=== PATIENT | male | born 1980 | race Two or more races ===

== ENCOUNTER 2024-11-10 15:40 | Emergency (ER) | payer MEDICAID, SELFPAY ==
--- NOTE | ~2024-11-10 | CT_ITS ---
CLINICAL HISTORY: L flank pain CT abdomen and pelvis without contrast Comparison: None available Findings: Mild bibasilar atelectasis/pneumonitis of the lung bases with 1 cm lesion in the lingula (image number 1 of series 8). Motion degraded examination. Splenomegaly with spleen measuring 14 cm long axis. The adrenal glands are normal. Gallbladder, pancreas, and liver are unremarkable for noncontrast study. Phleboliths are redemonstrated in the pelvis including posterior to the bladder and left ureter. Prostate gland measures 5.1 cm transversely and indents upon the urinary bladder with mild wall thickening of the urinary bladder. No obstructing stone in either kidney or either ureter. No hydronephrosis. Small mesenteric lymph nodes are likely reactive. No small bowel obstruction. Severe stool burden is present, including in the cecum. Imaged appendix is within normal limits (image 19 of series 5). Mild vertebral height losses appear old/chronic and accentuated by Schmorl's nodes. Vacuum disc phenomenon at L2-L3. IMPRESSION: 1. Pulmonary opacities concerning for pneumonitis/pneumonia in the lung bases, left worse than right. Recommend attention on follow-up to ensure resolution. 2. Splenomegaly. 3. No obstructing stone in either kidney or either ureter. This document has been electronically signed by: Thanh López MD on 11/10/2024 19:06:18
[2024-11-10 15:43] VITALS: BP 106/54; PULSE 64; RESP 16; TEMP 36.9; O2SAT 98; BMI 24.8
--- NOTE | 2024-11-10 15:44 | ED.GENADULT ---
HPI - General Adult General Chief complaint: General Medical Stated complaint: vomiting and urinating blood hep c hx Time Seen by Provider: 11/10/24 16:17 Related Data Previous Rx's ?Medication ?Instructions ?Recorded acetaminophen 500 mg tablet 500 mg PO Q6H PRN fever or pain 11/10/24 #20 tabs azithromycin 250 mg tablet 250 mg PO DAILY 4 days #4 tabs 11/10/24 (Zithromax) ketorolac 10 mg tablet 10 mg PO Q8H PRN pain #10 tabs 11/10/24 Allergies Allergy/AdvReac Type Severity Reaction Status Date / Time No Known Allergies Allergy Verified 11/10/24 15:44 [facility] Past Medical History Medical History (Updated 11/10/24 @ 20:16 by Lluvia Bustamante MD) Hepatitis C Physical Exam ED Vital Signs: Vital Signs - 24 hr 11/10/24 15:43 11/10/24 20:33 Temperature 98.5 F 98.5 F Pulse Rate 64 64 Respiratory Rate 16 16 Blood Pressure 106/54 L 106/54 L Pulse Oximetry 98 98 Oxygen Delivery Method Room Air Room Air BMI result Body Mass Index 24.8 Course Course Course Narrative: RME performed by Cari Hardy PA-C. Patient is a 44 year old assigned male at presenting to the emergency department with multiple complaints. Patient states that he is coughing, vomiting, and urinating blood. Patient states that he has lost a lot of weight. Patient states that he has hepatitis C and contracted it in 1997 after getting a tattoo in [place]. Detailed physical exam and review of systems are deferred to the acoustical material worker. Labs and swabs ordered. Patient placed back in the waiting room pending room availability and results. Dr. Anderson'lucretia created an additional note for this visit - please refer to that note for the rest of the patient's care / disposition. Medications Administered Discontinued Medications Generic Name Dose Route Start Last Admin Trade Name Freq PRN Reason Stop Dose Admin Azithromycin 500 mg 11/10/24 19:29 11/10/24 19:37 Azithromycin Oral Susp 600 Mg/15 Ml Bottle PO 11/10/24 19:30 Not Given ONCE ONE Azithromycin 500 mg 11/10/24 20:15 11/10/24 20:20 Azithromycin 500 Mg Tablet PO 11/10/24 20:16 500 mg ONCE ONE Administration Sodium Chloride 1,000 mls @ 999 mls/hr 11/10/24 16:23 11/10/24 18:17 Ns IVCONT 11/10/24 17:23 Infused .Q1H1M ONE Infusion Ketorolac Tromethamine 30 mg 11/10/24 16:23 11/10/24 17:18 Ketorolac Tromethamine 30 Mg/Ml Vial IVPUSH 11/10/24 16:24 30 mg ONCE ONE Administration Medical Decision Making Lab Data 11/10/24 16:57 11/10/24 16:57 Labs: Lab Results 11/10/24 11/10/24 11/10/24 Range/Units 16:00 16:57 18:25 WBC 6.6 (4.8-10.8) X10*3/uL RBC 4.60 (4.60-5.80) X10*6/uL Hgb 13.9 L (14.0-18.0) g/dl Hct 40.3 L (42.0-52.0) % MCV 87.6 (80.0-98.0) fL MCH 30.2 (27.0-33.0) pg MCHC 34.5 (31.0-36.0) g/dl RDW 13.2 (11.0-16.0) % Plt Count TNP MPV 11.5 (9.4-12.4) fL Immature Gran % (Auto) 0.3 (0.0-0.4) % Neut % (Auto) 70.4 (45-73) % Lymph % (Auto) 19.1 L (20-40) % Harrison % (Auto) 9.7 (2-11) % Eos % (Auto) 0.3 (0-4) % Baso % (Auto) 0.2 (0-2) % Lymph # (Auto) 1.3 (1.2-4.9) X10*3/uL Harrison # (Auto) 0.6 (0.1-1.2) X10*3/uL Eos # (Auto) 0.0 (0.0-0.4) X10*3/uL Baso # (Auto) 0.0 (0.0-0.2) X10*3/uL Abs Immat Gran (auto) 0.02 (0.00-0.03) X10*3/uL Absolute Neuts (auto) 4.7 (2.0-8.3) x10*3/uL Absolute Nucleated RBC 0.000 (0.0-0.012) X10*3/uL Nucleated RBC % (auto) 0.0 (0.0-0.2) /100WBC Smear Tech's Comments VERIFIED PT 14.2 H (10.9-12.4) SEC INR 1.2 H (0.9-1.1) APTT 28.7 (26.0-36.8) SEC Sodium 138 (135-145) mmol/L Potassium 4.6 (3.3-5.1) mmol/L Chloride 109 H (96-108) mmol/L Carbon Dioxide 20 L (22-29) mmol/L Anion Gap 14 (12-20) BUN 11 (9-16) mg/dL Creatinine 0.74 (0.5-1.4) mg/dL Estim Creat Clear Calc 121.9 Estimated GFR > 60 Random Glucose 127 H (60-115) mg/dL Calcium 9.0 (8.4-10.2) mg/dL Magnesium 1.9 (1.6-2.6) mg/dL Total Bilirubin 0.7 (0.0-1.0) mg/dL AST 44 H (5-37) U/L ALT 41 H (0-40) U/L Alkaline Phosphatase 60 (39-117) U/L Total Protein 7.8 (6.5-8.0) g/dL Albumin 3.7 (3.5-5.0) g/dL Urine Color Urine Appearance Urine pH (5.0-9.0) Ur Specific [place] (1.005-1.025) Urine Protein (Neg-Trace) mg/dL Urine Glucose (UA) (Negative) mg/dL Urine Ketones (Negative) mg/dL Urine Blood (Negative) Urine Nitrite (Negative) Ur Leukocyte Esterase (Negative) Urine RBC (0-2) /HPF Urine WBC (0-5) /HPF Ur Squamous Epith Cells (0-2) /HPF Urine Bacteria (None Seen) Hyaline Casts (0-2) /LPF Influenza Type A (PCR) NEGATIVE (Negative) Influenza Type B (PCR) POSITIVE A (Negative) RSV RNA Qual (PCR) NEGATIVE (Negative) SARS-CoV-2 RNA (RT-PCR) NEGATIVE (Negative) 11/10/24 Range/Units 19:39 WBC (4.8-10.8) X10*3/uL RBC (4.60-5.80) X10*6/uL Hgb (14.0-18.0) g/dl Hct (42.0-52.0) % MCV (80.0-98.0) fL MCH (27.0-33.0) pg MCHC (31.0-36.0) g/dl RDW (11.0-16.0) % Plt Count MPV (9.4-12.4) fL Immature Gran % (Auto) (0.0-0.4) % Neut % (Auto) (45-73) % Lymph % (Auto) (20-40) % Harrison % (Auto) (2-11) % Eos % (Auto) (0-4) % Baso % (Auto) (0-2) % Lymph # (Auto) (1.2-4.9) X10*3/uL Harrison # (Auto) (0.1-1.2) X10*3/uL Eos # (Auto) (0.0-0.4) X10*3/uL Baso # (Auto) (0.0-0.2) X10*3/uL Abs Immat Gran (auto) (0.00-0.03) X10*3/uL Absolute Neuts (auto) (2.0-8.3) x10*3/uL Absolute Nucleated RBC (0.0-0.012) X10*3/uL Nucleated RBC % (auto) (0.0-0.2) /100WBC Smear Tech's Comments PT (10.9-12.4) SEC INR (0.9-1.1) APTT (26.0-36.8) SEC Sodium (135-145) mmol/L Potassium (3.3-5.1) mmol/L Chloride (96-108) mmol/L Carbon Dioxide (22-29) mmol/L Anion Gap (12-20) BUN (9-16) mg/dL Creatinine (0.5-1.4) mg/dL Estim Creat Clear Calc Estimated GFR Random Glucose (60-115) mg/dL Calcium (8.4-10.2) mg/dL Magnesium (1.6-2.6) mg/dL Total Bilirubin (0.0-1.0) mg/dL AST (5-37) U/L ALT (0-40) U/L Alkaline Phosphatase (39-117) U/L Total Protein (6.5-8.0) g/dL Albumin (3.5-5.0) g/dL Urine Color Dark Yellow Urine Appearance Clear Urine pH 5.5 (5.0-9.0) Ur Specific [place] >= 1.030 H (1.005-1.025) Urine Protein 30 (1+) H (Neg-Trace) mg/dL Urine Glucose (UA) Negative (Negative) mg/dL Urine Ketones 15 (Negative) mg/dL Urine Blood Negative (Negative) Urine Nitrite Negative (Negative) Ur Leukocyte Esterase Negative (Negative) Urine RBC 0-2 (0-2) /HPF Urine WBC 0-5 (0-5) /HPF Ur Squamous Epith Cells 0-2 (0-2) /HPF Urine Bacteria None Seen (None Seen) Hyaline Casts 3-5 (0-2) /LPF Influenza Type A (PCR) (Negative) Influenza Type B (PCR) (Negative) RSV RNA Qual (PCR) (Negative) SARS-CoV-2 RNA (RT-PCR) (Negative) Discharge Plan Discharge Clinical Impression: Influenza, Pneumonia, Acute flank pain Patient Disposition: Home, Self-Care Instructions: Influenza (ED), Flank Pain (ED), Pneumonia (ED) Additional Instructions: Please follow-up with your primary care physician tomorrow. If you have any worsening or new symptoms, please return to the emergency room or call 911 Prescriptions: New azithromycin [Zithromax] 250 mg tablet 250 mg PO DAILY 4 Days Qty: 4 0RF Rx Instructions: start on day 2 of therapy ketorolac 10 mg tablet 10 mg PO Q8H PRN (Reason: pain) Qty: 10 0RF Rx Instructions: maximum total duration of 5 days from all oral, intranasal, or parenteral formulations acetaminophen 500 mg tablet 500 mg PO Q6H PRN (Reason: fever or pain) Qty: 20 0RF Stand Alone Forms: Work/School Release Interventions: ED Discharge Assessment Last Done: 11/10/24 20:33 Discharge Date/Time: 11/10/24 20:34 Print Language: Portuguese
--- OUTSIDE RECORDS SUMMARY | 2024-11-10 16:08 | XMS_ITS | Encounter Summary ---
Author Organization [facility] [place] [address] Care Team Providers Care Piping Drafter Name Role Phone Physician, Pcp Unknown Primary Care Provider Arpita vailable Reason for Visit * Reason Comments URI Abdominal Pain 0 Encounter Details Date Type Department Care Team (Late st Contact Info) Description 11/09/2024 3:53 PM EST - 11/09/2024 10:51 PM EST Emergency [facility] Emergency [address] [place] [address] Discharge Disposition: Home or Self Care Social History Tobacco Use Types Packs/Day Years Used Date Smoking Tobacco: Every Day Cigarettes Smokeless Tobacco: Never Tobacco Cessation:Ready to Q uit: No; Counseling Given: Not Answered Sex and Gender Information Value Date Recorded Sex Assigned at Not on file Gender Identity Not on file Sexual Orientation Not on file Job Start Date Occupation Industry Not on file Not on file Not on file documented as of this encounter Last Filed Vital Signs Vital Sign Reading Time Taken Comments Blood Pressure 109/70 11/09/2024 4:17 PM EST Pulse 76 11/09/2024 4:17 PM EST Temperature 37.3 ??C (99.1 ??F) 11/09/2024 4:17 PM ES T Respiratory Rate 18 11/09/2024 4:17 PM EST Oxygen Saturation 96% 11/09/2024 4:17 PM EST Inhaled Oxygen Concentration - - Weight 76.2 kg (168 lb) 11/09/2024 4:17 PM EST Height 172.7 cm (5' 8 ) 11/09/2024 4:17 PM EST Body Mass Index 25.54 11/09/2024 4:17 PM EST documented in this encounter Discharge Disposition Disposition Code Departure Means Destination Home or Self Care documented in this encounter Progress Notes * Karissa Green RN - 11/09/2024 4:23 PM EST Abdominal pain 3 days . Nausea no vomiting no diarrhea and headache . Pt also co burning on urination. Pain is sharp constant . Normal bms . Hx hepititis documented in this encounter Plan of Treatment Not on file documented as of this encounter Procedures Procedure Name Priority Date/Time Associated Diagnosis Comments URINALYSIS WITH REFLEX MICROSCOPIC AND CULTURE STAT 11/09/2024 4:17 PM EST WRAY URINE CULTURE TUBE STAT 11/09/2024 4:17 PM EST URINALYSIS WITH REFLEX MICROSCOPIC AND CULTURE STAT 11/09/2024 4:17 PM EST documented in this encounter Results * Wray urine culture tube (11/09/2024 4:17 PM EST) Extra Tube Hold for add-ons. 11/09/2024 7:01 PM EST [facility] Comment:Auto resulted. Urine Urine specimen obtained by clean catch procedure / Unknown 11/09/2024 4:17 PM EST 11/09/2024 6:00 PM EST Terry Zhang MD LAB URINE ORDERABLE S [facility] [address] [place] [address], * (ABNORMAL) Urinalysis with reflex microscopic and culture (11/09/2024 4:17 PM EST) Specific [place] Urine 1.027 1.003 - 1.030 LAB URINALYSIS - AUTOMATED METHOD 11/09/2024 6:13 PM [facility] pH, Urine 5.5 5.0 - 8.0 pH LAB URINALYSIS - AUTOMATED METHOD 11/09/2024 6:13 PM [facility] Leukocytes, Urine Negative Negative LAB URINALYSIS - AUTOMATED METHOD 11/09/2024 6:13 PM [facility] Nitrite, Urine Negative Negative LAB URINALYSIS - AUTOMATED METHOD 11/09/2024 6:13 PM [facility] Protein, Urine Trace <=Trace mg/dL LAB URINALYSIS - AUTOMATED METHOD 11/09/2024 6:13 PM [facility] Glucose, Urine Negative Negative mg/dL LAB URINALYSIS - AUTOMATED METHOD 11/09/2024 6:13 PM [facility] Ketones, Urine 15(A) Negative mg/dL LAB URINALYSIS - AUTOMATED METHOD 11/09/2024 6:13 PM [facility] Urobilinogen, Urine 2.0(A) 0.2 - 1.0 mg/dL LAB URINALYSIS - AUTOMATED METHOD 11/09/2024 6:13 PM [facility] Bilirubin, Urine Negative Negative LAB URINALYSIS - AUTOMATED METHOD 11/09/2024 6:13 PM [facility] Blood, Urine Negative Negative LAB URINALYSIS - AUTOMATED METHOD 11/09/2024 6:13 PM [facility] Urine Urine specimen obtained by clean catch procedure / Unknown 11/09/2024 4:17 PM EST 11/09/2024 6:00 PM EST Terry Zhang MD LAB URINE ORDERABLE S [facility] [address] [place] [address], documented in this encounter Visit Diagnoses Not on filedocumented in this encounter Administered Medications Inactive Administered Medications - up to 3 most recent administrations Medication Order MAR Action Action Date Dose Rate Site acetaminophen (TYLENOL) tablet 1,000 mg 1,000 mg, oral, Once, On Tue11/09/24 at 2025, For 1 dose, PRN for Pain or Fever Given 11/09/2024 8:30 PM EST 1,000 mg documented in this encounter Active and Recently Administered Medications Times are shown in EST. Scheduled Medication Order 11/07/2024 11/08/2024 11/09/2024 acetaminophen (TYLENOL) tablet 1,000 mg (COMPLETED) 1,000 mg, oral, Once, On Tue11/09/24 at 2025, For 1 dose, PRN for Pain or Fever 2029 (Given - Provid er: Gilberto Navarro RN) documented in this encounter Orders Medications Ordered That Shyam ht Not Have Been Administered Count Last Ordered Date First Ordered Date acetaminophen (TYLENOL) tablet 1,000 mg 1 0 11/09/2024 documented in this encounter Care Teams Piping Drafter Relationship Specialty Start Date End Date Physician, Pcp Unknown PCP - General 11/09/24 documented as of this encounter
--- OUTSIDE RECORDS SUMMARY | 2024-11-10 16:08 | XMS_ITS | Clinical Summary ---
Author Organization [facility] Address [address] [place] [address] Care Team Providers Care Pick Pulling Machine Tender Name Role Phone Audra Schneider Primary Care Provider [phone] Source Comments PLEASE NOTE, if this patient is a minor, it may be UNLAWFUL to discuss sensitive information that is contained in these records (such as FAMILY PLANNING, MENTAL HEALTH or SUBSTANCE ABUSE) with the minor patient's parent or other person without the patient's specific authorization.[facility] Allergies No known active allergies Medications SUBOXONE 8-2 mg SL film DISSOLVE 2 FILMS UNDER THE TONGUE DAILY 02/28/2024 Active Active Problems Problem Noted Date Diagnosed Date History of incarceration 03/06/2024 Immunizations Name Administration Dates Next Due Hep B,adult,adjuvanted (HEPLISAV) 07/04/2024 PNEUMOCOCCAL CONJUGATE PCV 20 (Prevnar) 07/04/20 24 TDAP 07/04/2024 Family History Medical History Relation Name Comments Heart attack Father Relation Name Status Comments Father Mother Alive Social History Tobacco Use Types Packs/Day Years Used Date Smoking Tobacco: Every Day Cigarettes 0.6 6.7 Started: 03/06/2023 Smokeless Tobacco: Never Tobacco Cessation:Ready to Q uit: No; Counseling Given: No Alcohol Use Standard Drinks/Week Comments Yes 0 (1 standard drink = 0.6 oz pur e alcohol) sometimes Social Connections Answer Date Recorded Connectedness 1 07/04/2024 Financial Resource Strain Answer Date R ecorded Financial Resource Strain 1 2023 Stress Answer Date Recorded Stress 1 07/04/2024 Physical Activity Answer Date Recorded Physical Activity 0 12/28/2023 Food Insecurity Answer Date Recorded Food 1 07/04/2024 Transportation Needs Answer Date Record ed Transportation 1 07/04/2024 Housing Stability Answer Date Recorded Housing 1 07/04/2024 Safety and Environment Answer Date Raheem rded Safety 0 12/28/2023 Utilities Answer Date Recorded Utilities 1 07/04/2024 Employment Answer Date Recorded Stress 0 06/17/2024 Sex and Gender Information Value Date Recorded Sex Assigned at Male 03/06/2024 8:10 AM PDT Legal Sex Male 7:05 AM PST Gender Identity Male 03/06/2024 8:10 AM PDT Sexual Orientation Straight 03/06/2024 8: 10 AM PDT Last Filed Vital Signs Vital Sign Reading Time Taken Comments Blood Pressure 110/66 07/04/2024 1:14 PM EDT Pulse 67 07/04/2024 1:14 PM EDT Temperature 36.4 ??C (97.6 ??F) 03/06/2024 11:08 AM E DT Respiratory Rate 18 07/04/2024 1:14 PM EDT Oxygen Saturation 97% 07/04/2024 1:14 PM EDT Inhaled Oxygen Concentration - - Weight 77.6 kg (171 lb) 07/04/2024 1:14 PM EDT Height 172.7 cm (5' 8 ) 07/04/2024 1:14 PM EDT Body Mass Index 26 07/04/2024 1:14 PM EDT Plan of Treatment Health Maintenance Due Date Last Done Comments CT Colonography 2024 Colonoscopy 2024 Colorectal Cancer Screening 2024 FIT/gFOBT 2024 Fecal DNA 2024 Flexible Sigmoidoscopy 2024 Imm-Hepatitis B (2 of 2 - Cp G 2-dose series) 08/01/2024 07/04/2024 Alcohol and Drug Screen 10/03/2024 07/04/20 24, 03/06/2024 Depression Monitoring 10/04/2024 07/04/2024 , 03/06/2024 [id number] ( season) 2025 Postponed from 06/03 (Patient postponement) Tobacco Cessation Counseling (#1) 03/06/2025 Imm-Influenza (#1) 2025 Postponed from 06/03/2024 (Patient postponement) Annual Preventive Care Visit 07/04/2025 07/04/2024 Hypertension Screening (#1) 07/04/2025 Diabetes Screening 03/15/2027 03/15/2024 Lipid Screening 03/15/2029 03/15/2024 Imm-DTaP/Tdap/Td (2 - Td or Tdap) 07/04/2034 07/04/2024 HIV Screening Completed 03/15/2024 Imm-Pneumococcal Completed 07/04/2024 Procedures Procedure Name Priority Date/Time Associated Diagnosis Comments HIV 1/2 AG & AB W/RFLX (4TH GEN) Routine 03/15/2024 9:57 AM EDT Screening due COMPREHENSIVE METABOLIC PANEL Routine 03/15/2024 9:57 AM EDT Dyspnea, unspecified type LIPID PANEL Routine 03/15/2024 9:57 AM EDT Dyspnea, unspecified type from Last 3 Months or Most Recently Relevant to Health Maintenance Results * HIV 1/2 AG & AB W/RFLX (4TH GEN) (03/15/2024 9:57 AM EDT) HIV AG/AB, 4TH GEN NON-REAC TIVE NON-REAC TIVE [facility] Comment: HIV-1 antigen and HIV-1/HIV-2 antibodies were not detected. There is no laboratory evidence of HIV infection. PLEASE NOTE: This information has been disclosed to you from records whose confidentiality may be protected by state law. ??If your state requires such protection, then the state law prohibits you from making any further disclosure of the information without the specific written consent of the person to whom it pertains, or as otherwise permitted by law. A general authorization for the release of medical or other information is NOT sufficient for this purpose. ?? For additional information please refer to http://education.Queue-it/faq/JUW069 (This link is being provided for informational/ educational purposes only.) The performance of this assay has not been clinically validated in patients less than 2 years old. Blood Blood / Unknown 03/15/2024 9 :57 AM EDT 03/15/2024 9:58 AM EDT Narrative [facility] - 03/17/2024 1:26 PM EDT FASTING:NO Audra [facility] - BLOOD DRAW Final Result Performing Organization Address City/[facility]/ZIP Co de Phone Number [facility] [address] [address], [facility] [address] [address] * LIPID PANEL (03/15/2024 9:57 AM EDT) [facility] Signature CHOLESTEROL, TOTAL 120 <200 mg/dL [facility] HDL CHOLESTEROL 44 > OR = 40 mg/dL [facility] TRIGLYCERIDES 49 <150 mg/dL [facility] LDL-CHOLESTEROL 62 99 mg/dL (calc) [facility] Comment: Reference range: <100 Desirable range <100 mg/dL for primary prevention; ?? <70 mg/dL for patients with CHD or diabetic patients with > or = 2 CHD risk factors. LDL-C is now calculated using the Vin-Roland calculation, which is a validated novel method providing better accuracy than the Friedewald equation in the estimation of LDL-C. Vin RALPH et al. EMELIA. 2013;310(19): 7315-1471 (http://education.[employer]/faq/DED068) CHOL/HDLC RATIO 2.7 <5.0 (calc) [facility] NON-HDL CHOLESTEROL 76 <130 mg/dL (calc) [facility] Comment: For patients with diabetes plus 1 major ASCVD risk factor, treating to a non-HDL-C goal of <100 mg/dL (LDL-C of <70 mg/dL) is considered a therapeutic option. Blood Blood / Unknown 03/15/2024 9 :57 AM EDT 03/15/2024 9:58 AM EDT Narrative [facility] - 03/17/2024 1:26 PM EDT FASTING:NO Audar [facility] - BLOOD DRAW Final Result Performing Organization Address [facility]/ZIP Co de Phone Number [facility] [address] [address], [facility] [address] [place] [address] * (ABNORMAL) COMPREHENSIVE METABOLIC PANEL (03/15/2024 9:57 AM EDT) GLUCOSE 79 65 - 139 mg/dL [facility] Comment: ?Non-fasting reference interval UREA NITROGEN (BUN) 12 7 - 25 mg/dL [facility] CREATININE (blood) 0.90 0.60 - 1.29 mg/dL [facility] EGFR 108 > OR = 60 mL/min/1. 73m2 [facility] BUN/CREATININE RATIO SEE NOTE: [facility] Comment: ?? Not Reported: BUN and Creatinine are within ?? reference range. ? SODIUM 139 135 - 146 mmol/L [facility] POTASSIUM 4.1 3.5 - 5.3 mmol/L [facility] CHLORIDE 106 98 - 110 mmol/L [facility] CARBON DIOXIDE 25 20 - 32 mmol/L [facility] CALCIUM 9.2 8.6 - 10.3 mg/dL [facility] PROTEIN, TOTAL 7.1 6.1 - 8.1 g/dL [facility] ALBUMIN 4.2 3.6 - 5.1 g/dL [facility] GLOBULIN 2.9 1.9 - 3.7 g/dL (calc) [facility] ALBUMIN/GLOBULI N RATIO 1.4 1.0 - 2.5 (calc) [facility] BILIRUBIN, TOTAL 0.7 0.2 - 1.2 mg/dL [facility] ALKALINE PHOSPHATASE 70 36 - 130 U/L [facility] AST 47(H) 10 - 40 U/L [facility] ALT 69(H) 9 - 46 U/L [facility] Blood Blood / Unknown 03/15/2024 9 :57 AM EDT 03/15/2024 9:58 AM EDT Narrative [facility] - 03/17/2024 1:26 PM EDT FASTING:NO Audra [facility] - BLOOD DRAW Edited Result - Final [facility] [address] [address], [facility] [address] [place] [address] from Last 3 Months or Most Recently Relevant to Health Maintenance Insurance [id number] [facility] [employer] Care Teams Pick Pulling Machine Tender Relationship Specialty Start Date End Date Audra Schneider PA [address] [place] [address] PCP - General Primary Care 12/28/23
--- NOTE | 2024-11-10 16:26 | ED.GENADULT ---
HPI - General Adult General Chief complaint: General Medical Stated complaint: vomiting and urinating blood hep c hx Time Seen by Provider: 11/10/24 16:17 Source: patient Mode of arrival: ambulatory Limitations: no limitations History of Present Illness ED Provider: Dr. Lluvia Bustamante HPI narrative: Patient comes to the emergency room complaining of 2 days of left-sided flank pain, hematuria and dysuria. Patient states that he was recently diagnosed with the flu and has current headaches. Patient complaining of diffuse body aches, generalized malaise. Patient also states that he has history of hepatitis-C, and eventually would like to have it treated. Related Data Previous Rx's ?Medication ?Instructions ?Recorded acetaminophen 500 mg tablet 500 mg PO Q6H PRN fever or pain 11/10/24 #20 tabs azithromycin 250 mg tablet 250 mg PO DAILY 4 days #4 tabs 11/10/24 (Zithromax) ketorolac 10 mg tablet 10 mg PO Q8H PRN pain #10 tabs 11/10/24 Allergies Allergy/AdvReac Type Severity Reaction Status Date / Time No Known Allergies Allergy Verified 11/10/24 15:44 Review of Systems Review of Systems: Constitutional : No Weight loss, No Fever, No Chills, No Night Sweats, No Fatigue, No Malaise ENT/Mouth : No Hearing loss, No Ear Pain, No Nasal Congestion, No Sinus Pain, No Hoarseness, No sore throat, No Rhinorrhea, No Swallowing Difficulty Eyes: No Eye Pain, No Swelling, No Redness, No Foreign Body, No Discharge, No Vision Changes Cardiovascular : No Chest Pain, No SOB, No Dyspnea on Exertion, No Orthopnea, No Edema, No Palpitations Respiratory : No Cough, No Sputum, No Wheezing, No Smoke Exposure, No Dyspnea Gastrointestinal : Complaining of nausea and vomiting No Diarrhea, No Constipation, No abdominal Pain, No Hematochezia, No Melena Genitourinary : complaining of hematuria and dysuria,, No Urinary Incontinence, No Urgency, complaining of left-sidedFlank Pain, No Urinary Flow Changes, No Hesitancy Musculoskeletal : No joint pain, No Myalgias, No Joint Swelling Skin : No Skin Lesions, No rash Neuro : No Weakness, No Numbness, No Paresthesias, No Loss of Consciousness, No Dizziness, No Headache Psych : No Anxiety/Panic, No Depression, No SI/HI/AH/VH, No Social Issues, Heme/Lymph: No Bruising, No Bleeding,No Lymphadenopathy Endocrine : No Polyuria, No Polydipsia, No Temperature Intolerance COUNTS INCLUDE 234 BEDS AT THE [facility] Past Medical History Medical History (Updated 11/10/24 @ 20:16 by Lluvia Bustamante MD) Hepatitis C Social History Social History Advance Directives: No Advance Directives Information Provided: No Physical Exam ED Vital Signs: Vital Signs - 24 hr 11/10/24 15:43 Temperature 98.5 F Pulse Rate 64 Respiratory Rate 16 Blood Pressure 106/54 L Pulse Oximetry 98 Oxygen Delivery Method Room Air BMI result Body Mass Index 24.8 Const Other: Appearance: Alert. Oriented X3. seems a bit uncomfortable Eyes: Pupils equal, round and reactive to light. ENT: Pharynx normal. Neck: Normal inspection. Neck supple. No lymph nodes noted. No crepitus CVS: Normal heart rate and rhythm. Pulses normal. Normal S1 and S2 Respiratory: No respiratory distress. Breath sounds normal. No Wheezing. No rales Abdomen: Soft and nontender. No rigidity. No distention. CVA tenderness on the left Skin: Skin warm and dry. Normal skin color. Normal skin turgor. Extremities: No lower extremity edema. No Lacerations. No Rash Neuro: Oriented X 3. No motor deficit. No sensory deficit. Moving all extremities. No slurred speech. CN 2 through 12 grossly intact Psych: calm, cooperative, normal affect Course Course Course Narrative: patient receiving IV fluids, ketorolac all of patient's labs and imaging pending Consultations Additional Consultation(s): Medications Administered Discontinued Medications Generic Name Dose Route Start Last Admin Trade Name Tyrel PRN Reason Stop Dose Admin Azithromycin 500 mg 11/10/24 19:29 11/10/24 19:37 Azithromycin Oral Susp 600 Mg/15 Ml Bottle PO 11/10/24 19:30 Not Given ONCE ONE Sodium Chloride 1,000 mls @ 999 mls/hr 11/10/24 16:23 11/10/24 18:17 Ns IVCONT 11/10/24 17:23 Infused .Q1H1M ONE Infusion Ketorolac Tromethamine 30 mg 11/10/24 16:23 11/10/24 17:18 Ketorolac Tromethamine 30 Mg/Ml Vial IVPUSH 11/10/24 16:24 30 mg ONCE ONE Administration Medical Decision Making Medical Decision Making [facility] Narrative: my interpretation of labs: Patient's hematology does not show any acute abnormality. , no significant abnormality in patient's chemistry, LFTs slightly bumped, chronic per patient. Urinalysis negative for UTI, serology positive for influenza B CT scan of the abdomen pelvis does not show any acute abnormality, no kidney stones. Patient has pulmonary opacities concerning for pneumonitis versus pneumonia. Patient has been coughing, unwell, recently diagnosed with flu. Given patient's symptoms and radiologic findings, we will go ahead and treat with antibiotics. First dose of azithromycin given in the emergency room. Patient states that he has an appointment pending in the clinic to start treatment for hepatitis-C. patient has a fever, no oxygen desaturations Differential Diagnosis Differential Diagnoses: The differential diagnosis associated with the presentation includes ( As above) Lab Data [facility] Lab Attestation statement: I reviewed the patient's lab results. 11/10/24 16:57 11/10/24 16:57 Labs: Lab Results 11/10/24 11/10/24 11/10/24 Range/Units 16:00 16:57 18:25 WBC 6.6 (4.8-10.8) X10*3/uL RBC 4.60 (4.60-5.80) X10*6/uL Hgb 13.9 L (14.0-18.0) g/dl Hct 40.3 L (42.0-52.0) % MCV 87.6 (80.0-98.0) fL MCH 30.2 (27.0-33.0) pg MCHC 34.5 (31.0-36.0) g/dl RDW 13.2 (11.0-16.0) % Plt Count TNP MPV 11.5 (9.4-12.4) fL Immature Gran % (Auto) 0.3 (0.0-0.4) % Neut % (Auto) 70.4 (45-73) % Lymph % (Auto) 19.1 L (20-40) % [place] % (Auto) 9.7 (2-11) % Eos % (Auto) 0.3 (0-4) % Baso % (Auto) 0.2 (0-2) % Lymph # (Auto) 1.3 (1.2-4.9) X10*3/uL [place] # (Auto) 0.6 (0.1-1.2) X10*3/uL Eos # (Auto) 0.0 (0.0-0.4) X10*3/uL Baso # (Auto) 0.0 (0.0-0.2) X10*3/uL Abs Immat Gran (auto) 0.02 (0.00-0.03) X10*3/uL Absolute Neuts (auto) 4.7 (2.0-8.3) x10*3/uL Absolute Nucleated RBC 0.000 (0.0-0.012) X10*3/uL Nucleated RBC % (auto) 0.0 (0.0-0.2) /100WBC Smear Tech's Comments VERIFIED PT 14.2 H (10.9-12.4) SEC INR 1.2 H (0.9-1.1) APTT 28.7 (26.0-36.8) SEC Sodium 138 (135-145) mmol/L Potassium 4.6 (3.3-5.1) mmol/L Chloride 109 H (96-108) mmol/L Carbon Dioxide 20 L (22-29) mmol/L Anion Gap 14 (12-20) BUN 11 (9-16) mg/dL Creatinine 0.74 (0.5-1.4) mg/dL Estim Creat Clear Calc 121.9 Estimated GFR > 60 Random Glucose 127 H (60-115) mg/dL Calcium 9.0 (8.4-10.2) mg/dL Magnesium 1.9 (1.6-2.6) mg/dL Total Bilirubin 0.7 (0.0-1.0) mg/dL AST 44 H (5-37) U/L ALT 41 H (0-40) U/L Alkaline Phosphatase 60 (39-117) U/L Total Protein 7.8 (6.5-8.0) g/dL Albumin 3.7 (3.5-5.0) g/dL Urine Color Urine Appearance Urine pH (5.0-9.0) Ur Specific [place] (1.005-1.025) Urine Protein (Neg-Trace) mg/dL Urine Glucose (UA) (Negative) mg/dL Urine Ketones (Negative) mg/dL Urine Blood (Negative) Urine Nitrite (Negative) Ur Leukocyte Esterase (Negative) Urine RBC (0-2) /HPF Urine WBC (0-5) /HPF Ur Squamous Epith Cells (0-2) /HPF Urine Bacteria (None Seen) Hyaline Casts (0-2) /LPF Influenza Type A (PCR) NEGATIVE (Negative) Influenza Type B (PCR) POSITIVE A (Negative) RSV RNA Qual (PCR) NEGATIVE (Negative) SARS-CoV-2 RNA (RT-PCR) NEGATIVE (Negative) 11/10/24 Range/Units 19:39 WBC (4.8-10.8) X10*3/uL RBC (4.60-5.80) X10*6/uL Hgb (14.0-18.0) g/dl Hct (42.0-52.0) % MCV (80.0-98.0) fL MCH (27.0-33.0) pg MCHC (31.0-36.0) g/dl RDW (11.0-16.0) % Plt Count MPV (9.4-12.4) fL Immature Gran % (Auto) (0.0-0.4) % Neut % (Auto) (45-73) % Lymph % (Auto) (20-40) % [place] % (Auto) (2-11) % Eos % (Auto) (0-4) % Baso % (Auto) (0-2) % Lymph # (Auto) (1.2-4.9) X10*3/uL [place] # (Auto) (0.1-1.2) X10*3/uL Eos # (Auto) (0.0-0.4) X10*3/uL Baso # (Auto) (0.0-0.2) X10*3/uL Abs Immat Gran (auto) (0.00-0.03) X10*3/uL Absolute Neuts (auto) (2.0-8.3) x10*3/uL Absolute Nucleated RBC (0.0-0.012) X10*3/uL Nucleated RBC % (auto) (0.0-0.2) /100WBC Smear Tech's Comments PT (10.9-12.4) SEC INR (0.9-1.1) APTT (26.0-36.8) SEC Sodium (135-145) mmol/L Potassium (3.3-5.1) mmol/L Chloride (96-108) mmol/L Carbon Dioxide (22-29) mmol/L Anion Gap (12-20) BUN (9-16) mg/dL Creatinine (0.5-1.4) mg/dL Estim Creat Clear Calc Estimated GFR Random Glucose (60-115) mg/dL Calcium (8.4-10.2) mg/dL Magnesium (1.6-2.6) mg/dL Total Bilirubin (0.0-1.0) mg/dL AST (5-37) U/L ALT (0-40) U/L Alkaline Phosphatase (39-117) U/L Total Protein (6.5-8.0) g/dL Albumin (3.5-5.0) g/dL Urine Color Dark Yellow Urine Appearance Clear Urine pH 5.5 (5.0-9.0) Ur Specific [place] >= 1.030 H (1.005-1.025) Urine Protein 30 (1+) H (Neg-Trace) mg/dL Urine Glucose (UA) Negative (Negative) mg/dL Urine Ketones 15 (Negative) mg/dL Urine Blood Negative (Negative) Urine Nitrite Negative (Negative) Ur Leukocyte Esterase Negative (Negative) Urine RBC 0-2 (0-2) /HPF Urine WBC 0-5 (0-5) /HPF Ur Squamous Epith Cells 0-2 (0-2) /HPF Urine Bacteria None Seen (None Seen) Hyaline Casts 3-5 (0-2) /LPF Influenza Type A (PCR) (Negative) Influenza Type B (PCR) (Negative) RSV RNA Qual (PCR) (Negative) SARS-CoV-2 RNA (RT-PCR) (Negative) Independent Interpretation I performed an independent interpretation of an: CT Scan Radiology Impression Discussion of test interpretation with radiology: I have reviewed the radiologist's reading. Radiologist Impression: Mild bibasilar atelectasis/pneumonitis of the lung bases with 1 cm lesion in the lingula (image number 1 of series 8). Motion degraded examination. Splenomegaly with spleen measuring 14 cm long axis. The adrenal glands are normal. Gallbladder, pancreas, and liver are unremarkable for noncontrast study. Phleboliths are redemonstrated in the pelvis including posterior to the bladder and left ureter. Prostate gland measures 5.1 cm transversely and indents upon the urinary bladder with mild wall thickening of the urinary bladder. No obstructing stone in either kidney or either ureter. No hydronephrosis. Small mesenteric lymph nodes are likely reactive. No small bowel obstruction. Severe stool burden is present, including in the cecum. Imaged appendix is within normal limits (image 19 of series 5). Mild vertebral height losses appear old/chronic and accentuated by Schmorl's nodes. Vacuum disc phenomenon at L2-L3. IMPRESSION: 1. Pulmonary opacities concerning for pneumonitis/pneumonia in the lung bases, left worse than right. Recommend attention on follow-up to ensure resolution. 2. Splenomegaly. 3. No obstructing stone in either kidney or either ureter. Discharge Plan Discharge Clinical Impression: Influenza, Pneumonia, Acute flank pain Patient Disposition: Home, Self-Care Instructions: Influenza (ED), Flank Pain (ED), Pneumonia (ED) Additional Instructions: Please follow-up with your primary care physician tomorrow. If you have any worsening or new symptoms, please return to the emergency room or call 911 Prescriptions: New azithromycin [Zithromax] 250 mg tablet 250 mg PO DAILY 4 Days Qty: 4 0RF Rx Instructions: start on day 2 of therapy ketorolac 10 mg tablet 10 mg PO Q8H PRN (Reason: pain) Qty: 10 0RF Rx Instructions: maximum total duration of 5 days from all oral, intranasal, or parenteral formulations acetaminophen 500 mg tablet 500 mg PO Q6H PRN (Reason: fever or pain) Qty: 20 0RF Print Language: Divehi
--- NOTE | 2024-11-10 16:51 | PC.NURSE ---
IVF and analgesia delayed d/t difficult IV placement- will require US access
[2024-11-10] MEDS: 0.9 % Sodium Chloride 1,000 ML 999 ML IVCONT (17:16)
[2024-11-10] MEDS: Ketorolac Tromethamine 30 MG/ML VIAL IVPUSH (17:18)
[2024-11-10 17:23] LABS: Alanine Aminotransferase 41 U/L (0-40); Albumin Level 3.7 g/dL (3.5-5.0); Alkaline Phosphatase 60 U/L (39-117); Anion Gap 14 (12-20); Aspartate Amino Transferase 44 U/L (5-37); Bilirubin Total 0.7 mg/dL (0.0-1.0); Blood Urea Nitrogen 11 mg/dL (9-16); Carbon Dioxide 20 mmol/L (22-29); Chloride 109 mmol/L (96-108); Creatinine Clr Calc Pharmacy 121.9; Estimated Glomerular Filt Rate > 60; Glucose Random 127 mg/dL (60-115); Magnesium 1.9 mg/dL (1.6-2.6); Potassium 4.6 mmol/L (3.3-5.1); Sodium 138 mmol/L (135-145); Total Protein 7.8 g/dL (6.5-8.0)
[2024-11-10 17:30] LABS: Basophils Percent Auto 0.2 % (0-2); Eosinophils Percent Auto 0.3 % (0-4); Hematocrit 40.3 % (42.0-52.0); Hemoglobin 13.9 g/dl (14.0-18.0); Imm Gran Abs Auto 0.02 X10*3/uL (0.00-0.03); Imm Gran Pct Auto 0.3 % (0.0-0.4); Lymphocytes Absolute Auto 1.3 X10*3/uL (1.2-4.9); Lymphocytes Percent Auto 19.1 % (20-40); MANUAL DIFF FLAG SCAN; Mean Corpuscular HGB Conc 34.5 g/dl (31.0-36.0); Mean Corpuscular Hemoglobin 30.2 pg (27.0-33.0); Mean Corpuscular Volume 87.6 fL (80.0-98.0); Monocytes Absolute Auto 0.6 X10*3/uL (0.1-1.2); Monocytes Percent Auto 9.7 % (2-11); Neutrophils Absolute Auto 4.7 x10*3/uL (2.0-8.3); Neutrophils Percent Auto 70.4 % (45-73); PLT CLUMP 1; Red Cell Distribution Width 13.2 % (11.0-16.0); SCAN SMEAR FLAG 1
[2024-11-10 17:39] LABS: Influenza A PCR NEGATIVE (Negative); Influenza B PCR POSITIVE (Negative); Resp Syncy Virus RNA Qual PCR NEGATIVE (Negative); SARS COV2 PCR INHOUSE NEGATIVE (Negative)
[2024-11-10 18:31] LABS: Mean Platelet Volume 11.5 fL (9.4-12.4); White Blood Count 6.6 X10*3/uL (4.8-10.8)
[2024-11-10 18:32] LABS: SLIDE REVIEW VERIFIED
[2024-11-10 18:39] LABS: INTERNATIONAL NORM RATIO 1.2 (0.9-1.1); Prothrombin Time 14.2 SEC (10.9-12.4)
[2024-11-10 18:42] LABS: Partial Thromboplastin Time 28.7 SEC (26.0-36.8)
[2024-11-10 19:51] LABS: Appearance Urine Clear; Color Urine Dark Yellow; Glucose Urine UA Negative (Negative); Leukocyte Esterase Urine Negative (Negative); Nitrite Urine Negative (Negative); PH 5.5 (5.0-9.0); Specific Gravity - Urine >= 1.030 (1.005-1.025); UMIC TRIGGER UACC YES; Urine Blood Negative (Negative); Urine Ketones 15 mg/dL (Negative); Urine Protein 30 (1+) mg/dL (Neg-Trace)
[2024-11-10 19:56] LABS: Bacteria Urine None Seen (None Seen); RBC Urine 0-2 /HPF (0-2); Squamous Epithelial Cell Urine 0-2 /HPF (0-2); WBC Urine 0-5 /HPF (0-5)
[2024-11-10] MEDS: Azithromycin 500 MG TABLET PO (20:20)
[2024-11-10 20:33] VITALS: BP 106/54; PULSE 64; RESP 16; TEMP 36.9; O2SAT 98
== END 2024-11-10 20:34 | disposition home or self-care (01) ==
PROVIDERS: Physician Assistant Medical; Emergency Provider Emergency Medicine
DX: J10.00 Influenza due to other identified influenza virus with unspecified type of pneumonia (principal); J18.9 Pneumonia, unspecified organism; R10.9 Unspecified abdominal pain; R11.2 Nausea with vomiting, unspecified; R05.9 Cough, unspecified; B19.20 Unspecified viral hepatitis C without hepatic coma; Z03.818 Encounter for observation for suspected exposure to other biological agents ruled out
CPT/HCPCS: 0241U; 36415; 74176; 80053; 81001; 83735; 85025; 85610; 85730; 96361; 96374; 99284; J1885

== ENCOUNTER → 2024-11-10 16:23 | Outpatient (BNV) | payer MEDICAID, SELFPAY | PROVIDERS: Emergency Provider Emergency Medicine; Visit Provider Radiology Neuroradiology | DX: R91.8 Other nonspecific abnormal finding of lung field (principal); R16.1 Splenomegaly, not elsewhere classified; R10.9 Unspecified abdominal pain | CPT/HCPCS: 74176 ==